=== PATIENT | female | born 1995 ===

== ENCOUNTER 2017-01-20 14:27 | Emergency (ER) | payer MEDICAID ==
[2017-01-20 14:28] VITALS: BMI 20.1
[2017-01-20 14:37] VITALS: RESP 16; TEMP 97.9; O2SAT 99
[2017-01-20] MEDS ORDERED: Lactated Ringer's 1,000 ML in Lactated Ringer's 1,000 ML IV STA (14:58)
--- NOTE | 2017-01-20 15:36 | ED PDOC ---
HPI: Female Pain Time Seen by Provider: 01/20/17 14:48 Chief Complaint (Nursing): Female Genitourinary Chief Complaint (Provider): female genitourinary History Per: Patient History/Exam Limitations: no limitations Onset/Duration Of Symptoms: Days (x 1 month ) Current Symptoms Are (Timing): Intermittent Episodes Quality Of Discomfort: Cramping Associated Symptoms: denies: Fever, Chills, Nausea, Vomiting, Diarrhea, Chest Pain, Urinary Symptoms Additional Complaint(s): Kristen Arango is a 21 year old female, with a previous medical history of asthma, who presents to the ED with complaints of episodes of vaginal bleeding intermittently ongoing for the past month. Pt states associated symptoms of pelvic pain and pain during intercourse. Pt was seen in the ED and diagnosed with a miscarriage last month. Pt reports to bleeding for 10 days heavily then began to have brown discharge. Pt states to having her normal menstrual cycle in December but states cycle lasted longer than usual. Pt reports to developing vaginal bleeding again. Pt did not follow up with her OBGYN. Pt denies any urinary symptoms, nausea, vomiting, diarrhea, fever or chills. PMD: none provided Abnormal Vaginal Bleeding: Yes Past Medical History Reviewed: Historical Data, Nursing Documentation, Vital Signs Vital Signs: Last Vital Signs Temp 97.9 F 01/20/17 14:32 Pulse 76 01/20/17 14:32 Resp 16 01/20/17 14:32 BP 95/53 L 01/20/17 14:32 Pulse Ox 99 01/20/17 14:32 - Medical History PMH: Asthma - Family History Family History: States: Unknown Family Hx - Home Medications Home Medications: Ambulatory Orders Medication Instructions Recorded Ibuprofen [Motrin] 600 mg PO TID 7 Days 04/10/16 Famotidine [Pepcid] 20 mg PO BID #28 tab 06/21/16 Ibuprofen 600 mg PO Q6 PRN #15 tablet 06/25/16 Ondansetron [Zofran] 4 mg PO Q8H PRN #10 tab 06/25/16 - Allergies Allergies/Adverse Reactions: Allergies Allergy/AdvReac Type Severity Reaction Status Date / Time aloe vera Allergy RASH Verified 03/09/16 14:15 Review of Systems ROS Statement: Except As Marked, All Systems Reviewed And Found Negative Constitutional: Negative for: Fever, Chills Gastrointestinal: Negative for: Nausea, Vomiting, Abdominal Pain, Diarrhea Genitourinary Female: Positive for: Vaginal Discharge (brown), Vaginal Bleeding , Pelvic Pain. Negative for: Dysuria, Frequency, Incontinence, Hematuria Physical Exam - Reviewed Nursing Documentation Reviewed: Yes Vital Signs Reviewed: Yes - Physical Exam Appears: Positive for: Well, Non-toxic, No Acute Distress Head Exam: Positive for: ATRAUMATIC, NORMAL INSPECTION, NORMOCEPHALIC Skin: Positive for: Normal Color, Warm, DRY Eye Exam: Positive for: EOMI, Normal appearance, PERRL ENT: Positive for: Normal ENT Inspection Neck: Positive for: Normal, Painless ROM Cardiovascular/Chest: Positive for: Regular Rate, Rhythm Respiratory: Positive for: CNT, Normal Breath Sounds Gastrointestinal/Abdominal: Positive for: Normal Exam, Bowel Sounds, Soft Pelvic Exam: Positive for: External Exam Normal, No Cerv. Motion Tender, No Masses, Blood (moderate at the vaginal canal ), Discharge (mucoid brown), Tender Adnexa (right ), Tender Uterus. Negative for: Mass Back: Positive for: Normal Inspection Extremity: Positive for: Normal ROM Neurologic/Psych: Positive for: Alert, Oriented - Laboratory Results Result Diagrams: 01/20/17 15:29 01/20/17 15:29 - ECG O2 Sat by Pulse Oximetry: 99 (RA) Pulse Ox Interpretation: Normal Medical Decision Making Medical Decision Making: Initial Impression: abnormal vaginal bleeding with discharge and pelvic pain differentials include bacterial vaginitis, retain product of conception, pelvic inflammatory disease, dysfunctions uterine Initial Plan: * blood type and screen * Beta-HCG * urine * urine dipstick * partial thromboplastin time * prothrombin time * chlamydia/ GC RNA * lactated ringer's 1,000 ml at 1,000 ml/hr * toradol * genital culture * US transvaginal * reevaluation Accession No. : [id number] Patient Name / ID : HENRIK PUCKETT / [id number] Exam Date : 01/20/2017 16:22:12 ( Approved ) Study Comment : Sex / Age : F / 21Y Creator : Marialuisa Yancey MD Dictator : Marialuisa Yancey MD Data Recovery Planner : [employer] : Marialuisa Yancey MD Approver2 : Report Date : 01/20/2017 17:42:33 My Comment : HISTORY: persistent discharge and pain possible PID COMPARISON: Ob transvaginal ultrasound performed 12/19/16 TECHNIQUE: Transvaginal pelvic ultrasound FINDINGS: UTERUS: Measures 7.1 x 2.7 x 2.8 cm. ENDOMETRIUM: Measures 7 mm in diameter. CERVIX: No cervical abnormality identified. RIGHT OVARY: Measures 2.5 x 1.6 x 1.8 cm. Blood flow is demonstrated to the right ovary. Heterogeneous right adnexal mass measures approximately 3.5 x 1.6 x 2.8 cm, indeterminate. LEFT OVARY: Measures 2.2 x 1.4 x 2.4 cm. Blood flow is demonstrated. Small para ovarian cyst measuring approximately 0.6 x 0.6 x 0.8 cm. FREE FLUID: Small pelvic free fluid. OTHER FINDINGS: None. IMPRESSION: Indeterminate heterogeneous right adnexal mass measuring approximately 3.5 x 1.6 x 2.8 cm. Recommend further evaluation with CT of the abdomen and pelvis with oral and IV contrast. 0.6 x 0.6 x 0.8 cm small left para ovarian cyst. Small pelvic free fluid. EKATERINA Tapia at length. Pt will be given another dose of Rhogam and be discharged and return to ER 48 hours for repeat blood work. EKATERINA pt findings. Reviewed possible scenarios discussed with OB: prolonged miscarriage, resolving corpus luteum cyst, resolving ectopic , new (threatened.) EKATERINA plan of care: return to ER for repeat blood work 48 hours, needs to be followed to negative preg (<6). RTER immediately for severe pain or bleeding >1 pad/hour , or fainting/near fainting. Scribe Attestation: Documented by Hillary Garcia, acting as a scribe for Shannan Jansen MD. Provider Scribe Attestation: All medical record entries made by the Scribe were at my direction and personally dictated by me. I have reviewed the chart and agree that the record accurately reflects my personal performance of the history, physical exam, medical decision making, and the department course for this patient. I have also personally directed, reviewed, and agree with the discharge instructions and disposition. Disposition - Clinical Impression Clinical Impression: Vaginal bleeding in Counseled Patient/Family Regarding: Studies Performed, Diagnosis, Need For Followup - Disposition Disposition: Routine/Home Disposition Time: 18:00 Condition: FAIR Additional Instructions: RETURN TO ER IN 48 HOURS FOR REPEAT BLOODWORK RETURN TO ER IMMEDIATELY FOR SEVERE PAIN, FAINTING OR NEAR FAINTING, BLEEDING MORE THAN A PAD AN HOUR, OR ANY OTHER WORRISOME SYMPTOMS DRINK PLENTY OF HYDRATING FLUIDS AND REST. PELVIC REST: NOTHING IN VAGINA UNTIL YOUR CONDITION RESOLVES. NO SEX, NO TAMPONS , NO DOUCHING. Instructions: Pelvic Rest (ED), Threatened Miscarriage (ED) Forms: [facility] ED School/Work Excuse
[2017-01-20 15:39] LABS: BASO # 0.1 K/uL (0.0-0.2); BASO % 0.8 % (0.0-2.0); EOS # 0.2 K/uL (0.0-0.7); EOS % 2.8 % (0.0-4.0); HEMATOCRIT 36.2 % (34.0-47.0); LYMPH # 1.7 K/uL (1.0-4.3); MEAN CELL VOLUME 88.5 fl (81.0-99.0); MEAN CORPUSCULAR HEMOGLOBIN 29.4 pg (27.0-31.0); MEAN CORPUSCULAR HGB CONC 33.2 g/dL (33.0-37.0); MEAN PLATELET VOLUME 8.8 fl (7.2-11.7); MONO # 0.8 K/uL (0.0-0.8); MONO % 11.8 % (0.0-10.0); NEUT # 3.9 K/uL (1.8-7.0); NEUT % 58.6 % (50.0-75.0); RED CELL DISTRIBUTION WIDTH 13.4 % (11.5-14.5); WHITE BLOOD COUNT 6.6 K/uL (4.8-10.8)
[2017-01-20 15:50] LABS: ALB/GLOB RATIO 1.2 (1.0-2.1); ALKALINE PHOSPHATASE 56 U/L (38-126); ALT/SGPT 25 U/L (9-52); AST/SGOT 24 U/L (14-36); BILIRUBIN,TOTAL 0.6 mg/dl (0.2-1.3); BLOOD UREA NITROGEN 12 mg/dl (7-17); CALCIUM 8.9 mg/dL (8.4-10.2); CARBON DIOXIDE 22 mmol/L (22-30); CHLORIDE 109 mmol/L (98-107); GFR AFRICAN-AMERICAN > 60; GLUCOSE,RANDOM 85 mg/dL (65-105); POTASSIUM 4.3 MMOL/L (3.6-5.0); SODIUM 138 mmol/l (132-148); TOTAL PROTEIN 7.3 G/DL (6.3-8.2)
[2017-01-20 16:02] LABS: PARTIAL THROMBOPLASTIN TIME 28.9 SECONDS (23.3-32.5)
--- NOTE | 2017-01-20 17:44 | US ---
HISTORY: persistent discharge and pain possible PID COMPARISON: Ob transvaginal ultrasound performed 12/19/16 TECHNIQUE: Transvaginal pelvic ultrasound FINDINGS: UTERUS: Measures 7.1 x 2.7 x 2.8 cm. ENDOMETRIUM: Measures 7 mm in diameter. CERVIX: No cervical abnormality identified. RIGHT OVARY: Measures 2.5 x 1.6 x 1.8 cm. Blood flow is demonstrated to the right ovary. Heterogeneous right adnexal mass measures approximately 3.5 x 1.6 x 2.8 cm, indeterminate. LEFT OVARY: Measures 2.2 x 1.4 x 2.4 cm. Blood flow is demonstrated. Small para ovarian cyst measuring approximately 0.6 x 0.6 x 0.8 cm. FREE FLUID: Small pelvic free fluid. OTHER FINDINGS: None. IMPRESSION: Indeterminate heterogeneous right adnexal mass measuring approximately 3.5 x 1.6 x 2.8 cm. Recommend further evaluation with CT of the abdomen and pelvis with oral and IV contrast. 0.6 x 0.6 x 0.8 cm small left para ovarian cyst. Small pelvic free fluid.
[2017-01-20 19:19] VITALS: BP 106/68; PULSE 70
== END 2017-01-20 20:20 | disposition home or self-care (01) ==
LOC: H.ER 14:27
DX: O46.90 Antepartum hemorrhage, unspecified, unspecified trimester (principal); N83.202 Unspecified ovarian cyst, left side; R10.2 Pelvic and perineal pain

== ENCOUNTER 2017-01-23 20:01 | Emergency (ER) | payer MEDICAID ==
[2017-01-23 20:02] VITALS: BMI 20.1
[2017-01-23 20:14] VITALS: BP 123/71; PULSE 79; RESP 16; TEMP 97.3; O2SAT 99
[2017-01-23] MEDS ORDERED: Iohexol 240 (50 ml) PO ONE (21:06)
[2017-01-23] MEDS ORDERED: Iohexol 240 (50 ml) ONE (22:02)
[2017-01-23 22:50] LABS: HEMATOCRIT 37.4 % (34.0-47.0); MEAN CORPUSCULAR HEMOGLOBIN 29.4 pg (27.0-31.0); MEAN CORPUSCULAR HGB CONC 33.1 g/dL (33.0-37.0); RED CELL DISTRIBUTION WIDTH 13.6 % (11.5-14.5); WHITE BLOOD COUNT 7.7 K/uL (4.8-10.8)
[2017-01-23 22:58] LABS: ALB/GLOB RATIO 1.3 (1.0-2.1); ALKALINE PHOSPHATASE 63 U/L (38-126); ALT/SGPT 29 U/L (9-52); AST/SGOT 37 U/L (14-36); BILIRUBIN,TOTAL 0.9 mg/dl (0.2-1.3); BLOOD UREA NITROGEN 12 mg/dl (7-17); CALCIUM 9.6 mg/dL (8.4-10.2); CARBON DIOXIDE 26 mmol/L (22-30); CHLORIDE 105 mmol/L (98-107); GFR AFRICAN-AMERICAN > 60; GLUCOSE,RANDOM 85 mg/dL (65-105); POTASSIUM 4.4 MMOL/L (3.6-5.0); SODIUM 144 mmol/l (132-148); TOTAL PROTEIN 8.2 G/DL (6.3-8.2)
[2017-01-23] MEDS ORDERED: Iohexol 300 100 ML IJ ONE (23:15)
[2017-01-23] MEDS ORDERED: Sodium Chloride 0.9% 50 ML IV ONE (23:16)
--- NOTE | 2017-01-23 23:57 | ED PDOC ---
HPI: Female Pain Time Seen by Provider: 01/23/17 20:20 Chief Complaint (Nursing): Female Genitourinary Chief Complaint (Provider): Right sided abdominal pain History Per: Patient History/Exam Limitations: no limitations Onset/Duration Of Symptoms: Days Current Symptoms Are (Timing): Still Present Severity: Mild Pain Scale Rating Of: 3 Additional Complaint(s): PT states she was told to come to the ER for CT scan because she does not have a PMD. Pt states the pain is the same as when she was seen 2 days ago. No N/V/D Past Medical History Reviewed: Historical Data, Nursing Documentation, Vital Signs Vital Signs: Last Vital Signs Temp 97.3 F L 01/23/17 20:11 Pulse 79 01/23/17 20:11 Resp 16 01/23/17 20:11 BP 123/71 01/23/17 20:11 Pulse Ox 99 01/23/17 20:11 - Medical History PMH: Asthma - Surgical History Surgical History: No Surg Hx - Family History Family History: States: Unknown Family Hx - Home Medications Home Medications: Ambulatory Orders Medication Instructions Recorded Ibuprofen [Motrin] 600 mg PO TID 7 Days 04/10/16 Famotidine [Pepcid] 20 mg PO BID #28 tab 06/21/16 Ibuprofen 600 mg PO Q6 PRN #15 tablet 06/25/16 Ondansetron [Zofran] 4 mg PO Q8H PRN #10 tab 06/25/16 Doxycycline Monohydrate 100 mg PO BID #28 tablet 01/24/17 - Allergies Allergies/Adverse Reactions: Allergies Allergy/AdvReac Type Severity Reaction Status Date / Time aloe vera Allergy RASH Verified 03/09/16 14:15 Review of Systems ROS Statement: Except As Marked, All Systems Reviewed And Found Negative Gastrointestinal: Positive for: Abdominal Pain Physical Exam - Reviewed Nursing Documentation Reviewed: Yes Vital Signs Reviewed: Yes - Physical Exam Appears: Positive for: Well, Non-toxic, No Acute Distress Head Exam: Positive for: ATRAUMATIC, NORMAL INSPECTION, NORMOCEPHALIC Skin: Positive for: Normal Color, Warm, DRY Eye Exam: Positive for: Normal appearance ENT: Positive for: Normal ENT Inspection Neck: Positive for: Normal, Painless ROM Cardiovascular/Chest: Positive for: Regular Rate, Rhythm Respiratory: Positive for: Normal Breath Sounds. Negative for: Accessory Muscle Use Gastrointestinal/Abdominal: Positive for: Bowel Sounds, Soft, Tenderness (Right lower abdomen ). Negative for: Normal Exam Back: Positive for: Normal Inspection Extremity: Positive for: Normal ROM Neurologic/Psych: Positive for: Alert, Oriented - Laboratory Results Result Diagrams: 01/23/17 21:55 01/23/17 21:55 - ECG O2 Sat by Pulse Oximetry: 99 Pulse Ox Interpretation: Normal Medical Decision Making Medical Decision Making: ?PID on CT. Could not r/o torsion. US repeated, no torsion. Disposition - Clinical Impression Clinical Impression: Pelvic pain - Disposition [facility] [Outside] Disposition: Routine/Home Disposition Time: 02:45 Condition: STABLE Prescriptions: Doxycycline Monohydrate 100 mg PO BID #28 tablet Instructions: Pelvic Inflammatory Disease (ED)
--- NOTE | 2017-01-24 01:17 | CT ---
EXAM: CT Abdomen and Pelvis With Intravenous Contrast. CLINICAL HISTORY: 21 years old, female; Pain; Abdominal pain; Tenderness; Right lower quadrant (rlq); Patient HX: Unknown at this time. ; Additional info: Rlq pain TECHNIQUE: Axial computed tomography images of the abdomen and pelvis with intravenous contrast. This CT exam was performed using one or more of the following dose reduction techniques: automated exposure control, adjustment of the mA and/or kV according to patient size, and/or use of iterative reconstruction technique. Coronal and sagittal reformatted images were created and reviewed. CONTRAST: 90 mL of omnipaque administered intravenously. EXAM DATE/TIME: Exam ordered 01/23/2017 9:06 PM COMPARISON: US - OB TRANSVAGINAL 12/19/2016 11:11:13 PM FINDINGS: History---There are previous reports but no previous CT images available for review. There is note of recent ultrasound dated December 16, 2016 which did not document an intrauterine gestation. A report but no images of ultrasound dated January 20, 2017 describes a heterogeneous right adnexal mass described as indeterminant. Lower thorax: Lungs with no findings to suggest focal airspace disease. ABDOMEN: Liver: Hepatic steatosis. Gallbladder and bile ducts: Unremarkable. No calcified stones. No ductal dilation. Pancreas: Unremarkable. No mass. No ductal dilation. Spleen: Unremarkable. No splenomegaly. Adrenals: Unremarkable. No mass. Kidneys and ureters: No hydronephrosis in either kidney. No ureteral stones are seen noting that punctate stones or noncalcified stones may not be well seen on CT. Stomach and bowel: Unremarkable. No obstruction. No mucosal thickening. Appendix: No findings to suggest acute appendicitis, clinical correlation. Favor that a normal appendix is partially visualized series 3 image 97. PELVIS: Bladder: Unremarkable. No mass. Reproductive: Series 3 image 133, there is a 19 mm finding which is favored to be associated with the right ovary, hypoattenuating centrally and with a approximately 4 mm enhancing rim. In the appropriate context in this patient who apparently has been documented recently, this could represent an ectopic , with hydrosalpinx or other pathology related to the reproductive system also in the differential. This is well seen coronal image 32, axial series 2 image 67. There is heterogeneity of the uterine cervix which could reflect inflammatory change. The ovaries contain bilateral normal follicles. ABDOMEN and PELVIS: Intraperitoneal space: There is a small amount of pelvic ascites which could be within physiologic limits for age. No free air. Bones/joints: Bony structures with no fractures. Loss of disc height L5-S1, probable disc bulge L4-L5, this study is not optimized to evaluate the musculoskeletal system. No dislocation. Soft tissues: There is mild infiltration of the fat in the right lower quadrant is seen se2 im 61. 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 No abdominal aortic aneurysm. Lymph nodes: Unremarkable. No enlarged lymph nodes. IMPRESSION: abnormality of the right ovary and suggestion of right hydrosalpinx, with differential including ovarian torsion, ectopic , infection. In light of the additional history provided at time of the conference call, infection/pelvic inflammatory disease consider most likely. noted poor visualization of the uterine cervix anatomy, differential includes infection, with Pap smear correlation recommended to exclude other pathology. THIS REPORT CONTAINS FINDINGS THAT MAY BE CRITICAL TO PATIENT CARE. The findings were verbally communicated via telephone conference with Hiwot Castillo PA-C at 12:59 AM EDT on 01/24/2017. The findings were acknowledged and understood. She provides additional history of recent negative test 2 days ago, no white count, clinically no suspicion for appendicitis. Discussed recommendation for repeat test. It was discussed that if there is clinical concern for ovarian torsion, imaging at this time to clarify perfusion of the the right ovary is recommended. Noting that the most recent ultrasound is not available, and no previous CTs are available though several were performed, comparison on site is recommended.
--- NOTE | 2017-01-24 02:01 | US ---
EXAM: US Pelvis, Transvaginal. CLINICAL HISTORY: 21 years old, female; Pain; Pelvic pain; Additional info: Right sided pain, R/O torsion TECHNIQUE: Real-time transvaginal pelvic ultrasound (complete) with image documentation. Transvaginal imaging was used for better evaluation of the endometrium and adnexa. EXAM DATE/TIME: Exam ordered 01/24/2017 1:03 AM COMPARISON: CT - ABD PELVIS PO IV CONTRAST 01/24/2017 12:12:17 AM FINDINGS: Uterus/cervix: The uterus measures 7.3 x 2.5 x 3.9 cm. Configuration of the uterus is normal. Normal endometrial stripe thickness of 4mm. No myometrial mass. Right ovary: Right ovary measures 2.8 x 1.8 x 1.7 cm. Configuration of the right ovary shows normal Doppler flow, follicles and a probable small simple cyst which is within physiologic limits, no evidence of ovarian torsion. As seen series 1 image 22, there is a 10 mm echogenic cystic finding associated with right ovary which could represent a complex cyst or small endometrioma in this young patient. There is a right adnexal solid structure with an echogenic focus . There is a heterogeneous finding in the right adnexal region series 1 image 26 and adjacent, which is questionably pedunculated off the right ovary, and is questionably associated with a right hydrosalpinx. This does not definitely correspond to the CT finding. Possibilities do include endometrioma or other ovarian pathology, noting series 1 image 35 some vascularity at only the periphery of this finding. The heterogeneously echogenic finding measures 1.7 x 1.7 x 1.3 cm. Left ovary: Left ovary measures 2 x 1.7 x 1.5 cm. Configuration of the left ovary is normal with small follicles, and normal Doppler flow. Normal blood flow. Free fluid: There is fluid seen in the cul-de-sac. Bladder: Empty bladder which cannot be evaluated with this probe. Other findings: Please note that ultrasound of December 19, 2016 is available, however ultrasound of January 20, 2017 is not available for direct comparison, although the report is available. History provided on the ultrasound worksheet is improving right-sided pelvic pain, a history of irregular cycles, pain improved compared to previous endovaginal examination of January 20, 2017. Please note that the beta hCG is not documented on the ultrasound worksheet. IMPRESSION: Right adnexal solid finding, noting that direct comparison to the previous ultrasound is not possible at this time and should be performed on-site. No evidence of ovarian torsion. Noting that there is ultrasound dated December 19, 2016 at which time this was not visualized, endometrioma is a consideration , pelvic inflammatory disease as suggested on CT not excluded although not likely to be the only explanation of this finding. Other differential considerations include broad ligament fibroid. MRI correlation, physical examination correlation suggested. Advise confirmation of negative beta hCG, as is true for all female patients of reproductive age.
[2017-01-24] MEDS ORDERED: cefTRIAXone (Rocephin) 250 mg Inj IM STA (02:41)
[2017-01-24] MEDS ORDERED: cefTRIAXone (Rocephin) 250 mg Inj ONE (02:42)
[2017-01-24] MEDS ORDERED: Lidocaine 1% Inj (20ml) ONE (02:42)
== END 2017-01-24 03:05 | disposition home or self-care (01) ==
LOC: H.ER 20:01
DX: R10.2 Pelvic and perineal pain (principal); N73.9 Female pelvic inflammatory disease, unspecified